=== PATIENT | female | born 1950 | race Caucasian/White ===

== ENCOUNTER 2018-05-18 09:33 | Emergency (ER) | payer MEDICARE ==
[~2018-05-18] VITALS: Ht 154.9 cm; Wt 64.5 kg
[2018-05-18] MEDS ORDERED: CALC-1038 PO (09:42)
[2018-05-18 10:09] VITALS: BP 132/74
== END 2018-05-18 11:34 | disposition home or self-care (01) ==
LOC: EMS 09:36
DX: S09.90XA Unspecified injury of head, initial encounter (principal); M48.02 Spinal stenosis, cervical region; R42 Dizziness and giddiness; W19.XXXA Unspecified fall, initial encounter; Y93.89 Activity, other specified; Y92.89 Other specified places as the place of occurrence of the external cause; Y99.8 Other external cause status
CPT/HCPCS: 70450; 72125; 99284